=== PATIENT | male | born 1985 | race Caucasian/White ===

== ENCOUNTER → 2016-07-05 | Outpatient (CLI) | payer BC ==
[~2016-07-05] MED LIST: ALPR.25T PO; HYDR-707 PO; SERT50TA PO
--- OUTSIDE RECORDS SUMMARY | 2016-07-05 10:15 | XMS REPORT | Continuity of Care Document ---
Author Author [facility] Organization [facility] Address Unknown Phone Unavailable Allergies Active Description Code Type Severity Reaction Onset Reported/Identified Relationship to Patient Clinical Status Yes morphine [id number] Drug Allergy Unknown HIVES 09/03/2012 Medications Problems Date Dx Coded Attending Type Code Diagnosis Diagnosed By 07/20/2012 Ot 530.11 09/08/2012 Ot 575.8 09/09/2012 Ot 998.11 05/09/2014 Ot V72.84 05/09/2014 Ot 789.00 05/09/2014 Ot 536.8 05/09/2014 Ot 575.8 05/09/2014 Ot 789.01 05/09/2014 Ot 575.8 05/09/2014 Ot V72.63 05/09/2014 Ot V74.8 05/26/2014 TARYN ZULETA DO Ot 719.65 08/11/2014 Ot 715.15 08/11/2014 Ot V72.81 08/11/2014 Ot V72.83 Procedures Results Encounters ACCT No. Visit Date/Time Discharge Status Pt. Type Provider Facility Loc./Unit Complaint [id number] 05/09/2014 16:44:00 2013 23:59:59 [facility] Outpatient TARYN ZULTEA DO [facility] [id number] 07/26/2014 08:35:00 Document Registration [id number] 09/09/2012 17:53:00 Document Registration [id number] 09/08/2012 10:49:00 Document Registration [id number] 09/03/2012 14:17:00 Document Registration [id number] 08/13/2012 09:35:00 Document Registration [id number] 07/22/2012 06:48:00 Document Registration [id number] 07/20/2012 09:09:00 Document Registration [id number] 07/15/2012 07:42:00 Document Registration
--- NOTE | 2016-07-05 10:27 | Diagnostic Imaging Report ---
Indication: Chest pain PA and lateral chest Heart size and pulmonary vascularity are normal. Lungs are clear. There are no effusions or pneumothoraces. Impression: Negative chest Dictated by: Dictated on workstation # [id number]
== END ==
LOC: RAD 10:11
PROVIDERS: ATTEND Internal Medicine
DX: J18.9 Pneumonia, unspecified organism (principal); R07.89 Other chest pain
CPT/HCPCS: 71020

== ENCOUNTER 2018-05-25 08:27 | Outpatient (RCR) | payer BC | END 2018-08-23 | disposition home or self-care (01) | LOC: CARD 08:27 | PROVIDERS: ATTEND Internal Medicine | DX: R00.2 Palpitations (principal) | CPT/HCPCS: 93225; 93226 ==